=== PATIENT | female | born 1950 | race American Indian/Alaskan Native ===

== ENCOUNTER 2018-03-24 06:12 | Day surgery (SDC) | payer MEDICARE, OTHER ==
[2018-03-24] MEDS ORDERED: ECOTRIN PO ONE (06:35)
[2018-03-24] MEDS ORDERED: NACL 0.9% 500 ML 500 ML IV SCH (07:00)
[2018-03-24 07:24] LABS: Basophils % (Auto) 0.3 % (0.0-1.8); Hematocrit 37.2 % (30.3-42.9); Hemoglobin 12.2 gm/dl (10.1-14.3); Lymphocytes # (Auto) 1.7 K/mm3 (1.2-5.4); Lymphocytes % (Auto) 11.2 % (13.4-35.0); Mean Corpuscular HGB Conc 33 % (30-34); Mean Corpuscular Volume 94 fl (79-97); Monocytes # (Auto) 0.4 K/mm3 (0.0-0.8); Monocytes % (Auto) 2.7 % (0.0-7.3); Platelet Count 327 K/mm3 (140-440); Red Blood Count 3.96 M/mm3 (3.65-5.03)
[2018-03-24 07:32] LABS: INR 1.03 (0.87-1.13); Partial Thromboplastin Time 28.6 Sec. (24.2-36.6)
[2018-03-24 07:42] LABS: BUN/Creatinine Ratio 16; Blood Urea Nitrogen 13 mg/dL (7-17); Calcium 9.9 mg/dL (8.4-10.2); Hemolysis Index 9
[2018-03-24] MEDS ORDERED: HEPARIN 10,000 UNITS/10 ML ONE (08:25)
[2018-03-24] MEDS ORDERED: HEPARIN/NS 5000 UNIT/500ML(CATH LAB) 1,000 ML IR ONE (08:25)
[2018-03-24] MEDS ORDERED: CALAN ONE (08:26)
[2018-03-24] MEDS ORDERED: XYLOCAINE 2% INFILTRATI ONE (08:26)
[2018-03-24] MEDS ORDERED: TYLENOL PO NR (08:29)
[2018-03-24] MEDS ORDERED: TYLENOL ONE (08:30)
[2018-03-24] MEDS: SUBLIMAZE ONE ×2 (09:03→09:06)
[2018-03-24] MEDS: VERSED ONE ×2 (09:03→09:06)
--- NOTE | 2018-03-24 09:51 | Cardiac Catherization Report ---
CARDIAC CATHETERIZATION REPORT INDICATION FOR PROCEDURE: The patient is a 67-year-old -[place] female with history of hypertension, diabetes, hyperlipidemia with shortness of breath on exertion. She has equivocal myocardial perfusion study and she is scheduled for cardiac catheterization for definitive diagnosis and treatment. The patient is aware of the procedure, potential complications and alternatives of therapy available. The patient had echocardiogram performed on 07/02/2017 which showed ejection fraction of 55-60%. Right ventricular function is moderately reduced. The patient has IV Lexiscan nuclear imaging performed on 01/27/2018, which showed perfusion scans are within normal limits. No stress-induced arrhythmia noted. The patient had history of cardiac catheterization performed on 05/28/1995 at which time she was noted to have mild wall irregularities. The patient was brought to the catheterization laboratory. The patient is allergic to LATEX and also allergic to IODINE. She is taking prophylactic prednisone, Benadryl and Tagamet prior to her procedure. Latex free gloves were used. The patient was evaluated for moderate sedation, was found to be appropriate for moderate sedation. The patient was given IV Versed and fentanyl. Subsequently, sterile drapes were applied. Right wrist area and forearm thoroughly cleansed with Betadine solution. Local anesthesia was given using 2% Xylocaine. Right radial artery puncture was made using 21-gauge arterial puncture needle. A 5-Tunisian slender sheath was introduced. A 5-Tunisian multipurpose catheter was used to obtain the angiograms of the left ventricle done in CARPENTER projection using hand injection. Subsequently, angiograms of the left coronary artery and right coronary artery were obtained using the same catheter. At the end of the procedure, catheter and sheath were removed. Good hemostasis was achieved. Following findings were noted: HEMODYNAMICS: Opening aortic pressure 168/76. Left ventricular pressure 172/28, no gradient across the aortic valve. Estimated ejection fraction 55%. Left ventriculogram done in CARPENTER projection showed normal size left ventricle with normal contractility. End-diastolic and systolic volumes are normal. Mitral regurgitation could not be evaluated because of limited amount of dye injected. Left coronary system arises normally from left coronary cusp. There is [id number] diffuse calcification noted throughout the left main, proximal and mid LAD areas. Left main without significant disease. Proximal LAD showed 30% short focal lesion. Mid and distal LAD without significant disease. Diagonal branches showed only mild irregularities. Circumflex artery nondominant vessel showed mild smooth irregularities. Right coronary artery very large dominant vessel shows focal 40% eccentric lesion in the proximal part. Otherwise, rest of the right coronary artery shows only mild irregularities. COLLATERALS: None. FINAL IMPRESSION: Normal sized left ventricle with normal contractility. Diffuse calcifications noted in the left coronary system area. There is mild to moderate disease with 30% proximal LAD and 40% proximal RCA lesion. These lesions were felt to be nonobstructive. At this time, considering no significant ischemia noted on the nuclear images along with patient's symptoms being nonspecific. The patient will be continued on risk factor modification and medical therapy. The patient tolerated the procedure well. The patient was sedated starting at 9:03 a.m. and ended at 9:15 a.m. The patient was monitored throughout the procedure with hemodynamic, EKG, and pulse oximetry. No untoward complications noted. At the end of the procedure, the patient was able to communicate well, moving all the extremities and breathing normally. The patient was transferred to the room in stable condition. Findings were explained to the patient and her . No untoward complications noted. JOB# [id number] JEFFRY/SUNNY
--- NOTE | 2018-03-24 10:45 | Short Stay Summary ---
Short Stay Documentation Date of service: 03/24/18 - History H&P: obtained from office - Allergies and Medications Current Medications: Allergies Latex, Natural Rubber Allergy (Severe, Verified 03/24/18 08:11) Swelling swelling around mouth and face iodine Adverse Reaction (Unverified 03/24/18 08:11) Rash Hives shellfish derived Adverse Reaction (Verified 03/24/18 08:11) Rash Hives Home Medications Medication Instructions Recorded Confirmed Last Taken Type Amitriptyline [Elavil] 75 mg PO QHS 03/24/18 03/24/18 03/23/18 History Aspirin [Lo-Dose Aspirin EC] 81 mg PO DAILY 03/24/18 03/24/18 03/24/18 06:50 History Ergocalciferol [Vitamin D2] 1 cap PO QWEEK 03/24/18 03/24/18 03/22/18 History Latanoprost 0.005% 1 drop OU QHS 03/24/18 03/24/18 03/23/18 History Lisinopril/Hydrochlorothiazide 1 tab PO QDAY 03/24/18 03/24/18 03/24/18 06:50 History [Zestoretic 20-12.5 mg] Metformin HCl [Glucophage] 500 mg PO QAM 03/24/18 03/24/18 03/23/18 History Nebivolol HCl [Bystolic] 5 mg PO DAILY 03/24/18 03/24/18 03/24/18 06:50 History Omeprazole 40 mg PO QHS 03/24/18 03/24/18 03/23/18 History Active Medications Sodium Chloride (Nacl 0.9% 500 Ml) 500 mls @ 50 mls/hr IV DIRECT LINO Stop: 03/24/18 16:59 Last Admin: 03/24/18 08:01 Dose: 50 mls/hr Documented by: - Brief post op/procedure progress note Date of procedure: 03/24/18 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 Post-op diagnosis: other (CAD) Procedure: [facility] - see dictated cath report Anesthesia: local Estimated blood loss: none Condition: stable - Disposition Condition at discharge: Good Disposition: [id number] TO HOME OR SELFCARE - Discharge Diagnoses (1) CAD (coronary artery disease) Status: Chronic (2) HTN (hypertension) Status: Chronic (3) Diabetes Status: Chronic (4) Hyperlipidemia Status: Chronic Short Stay Discharge Plan Activity: advance as tolerated Diet: low fat, low cholesterol, low salt, diabetic Wound: open to air, keep clean and dry, per your surgeon's advice Follow up with: PRIMARY CARE, [Primary Care Provider] - 7 Days
[2018-03-24 13:20] VITALS: BP 145/83
== END 2018-03-24 12:50 | disposition home or self-care (01) ==
LOC: CATHLABREC 06:12
PROVIDERS: ATTEND Internal Medicine
DX: I25.10 Atherosclerotic heart disease of native coronary artery without angina pectoris (principal); I10 Essential (primary) hypertension; E78.5 Hyperlipidemia, unspecified; E11.39 Type 2 diabetes mellitus with other diabetic ophthalmic complication; H42 Glaucoma in diseases classified elsewhere; G43.909 Migraine, unspecified, not intractable, without status migrainosus; E78.00 Pure hypercholesterolemia, unspecified; G47.30 Sleep apnea, unspecified; K21.9 Gastro-esophageal reflux disease without esophagitis; M19.90 Unspecified osteoarthritis, unspecified site; F41.9 Anxiety disorder, unspecified; Z91.041 Radiographic dye allergy status; Z79.899 Other long term (current) drug therapy; Z91.040 Latex allergy status; Z91.013 Allergy to seafood; Z87.891 Personal history of nicotine dependence; Z79.84 Long term (current) use of oral hypoglycemic drugs; Z79.82 Long term (current) use of aspirin; Z98.51 Tubal ligation status; Z90.710 Acquired absence of both cervix and uterus; Z87.440 Personal history of urinary (tract) infections; Z98.890 Other specified postprocedural states; Z80.3 Family history of malignant neoplasm of breast; Z80.0 Family history of malignant neoplasm of digestive organs; Z80.42 Family history of malignant neoplasm of prostate; Z86.2 Personal history of diseases of the blood and blood-forming organs and certain disorders involving the immune mechanism
CPT/HCPCS: 36415; 80048; 85025; 85610; 85730; 93005; 93010; 93458; 99156; C1894; J1644; J2250; J3010; J7040; Q9967

== ENCOUNTER 2018-03-30 17:35 | Inpatient (IN) | payer MEDICARE, OTHER ==
[2018-03-30] MEDS ORDERED: TYLENOL ONE (18:14)
[2018-03-30] MEDS ORDERED: TYLENOL PO ONE (18:14)
--- NOTE | 2018-03-30 22:41 | XRay Report ---
FINAL REPORT PROCEDURE: XR CHEST ROUTINE 2V TECHNIQUE: PA and lateral chest radiographs were obtained. CPT 11768 HISTORY: sob,cough,fever COMPARISON: No prior studies are available for comparison. FINDINGS: . Heart: Normal. Mediastinum/Vessels: Normal. Lungs/Pleural space: Lungs are hyperinflated. There are no confluent infiltrates or mass lesions. Ple ural spaces are clear. Bony thorax: No acute osseous abnormality. Other: IMPRESSION: COPD No acute pulmonary process.
[2018-03-30] MEDS ORDERED: PROVENTIL IH ONE (23:11)
[2018-03-30] MEDS ORDERED: TESSALON PERLES PO ONE (23:11)
[2018-03-30] MEDS ORDERED: TORADOL IV ONE (23:11)
[2018-03-30] MEDS ORDERED: SOLU-Medrol IV ONE (23:11)
[2018-03-30] MEDS ORDERED: PEPCID IV ONE (23:12)
[2018-03-30] MEDS ORDERED: ZITHROMAX PO ONE (23:13)
[2018-03-30] MEDS ORDERED: ATROVENT IH ONE (23:13)
[2018-03-30 23:16] LABS: Hematocrit 41.9 % (30.3-42.9); Hemoglobin 13.9 gm/dl (10.1-14.3); Mean Corpuscular HGB Conc 33 % (30-34); Mean Corpuscular Volume 93 fl (79-97); Platelet Count 278 K/mm3 (140-440); Red Blood Count 4.52 M/mm3 (3.65-5.03); Red Cell Distribution Width 14.5 % (13.2-15.2)
--- NOTE | 2018-03-30 23:20 | Emergency Department Report ---
ED Female HPI - General Chief complaint: Vaginal Bleeding Stated complaint: VAGINAL BLEEDING POST HYSTERECTOMY Time Seen by Provider: 03/30/18 22:58 Source: patient Mode of arrival: Ambulatory Limitations: No Limitations - History of Present Illness Initial comments: 67 year old female has medical history of arthritis, asthma, diabetes, GERD, migraines, hypertension, elevated cholesterol, and a previous hysterectomy in the presents to the hospital with complaints of vaginal bleeding 3 days and cough 1 week. Patient states that she has been using on average 2-3 pads per day for the last days of having suprapubic abdominal pain and lower back pain. She also is having frequent coughing during examination. Patient complaining of cough times mildly because of a green sputum and intermittent breath with wheezing. Patient had a couple episodes of nausea and vomiting since onset of cold symptoms however none today. Patient did not receive a flu shot this season. - Related Data Home Medications Medication Instructions Recorded Confirmed Last Taken Amitriptyline [Elavil] 75 mg PO QHS 03/24/18 03/24/18 03/23/18 Aspirin [Lo-Dose Aspirin EC] 81 mg PO DAILY 03/24/18 03/24/18 03/24/18 06:50 Ergocalciferol [Vitamin D2] 1 cap PO QWEEK 03/24/18 03/24/18 03/22/18 Latanoprost 0.005% 1 drop OU QHS 03/24/18 03/24/18 03/23/18 Lisinopril/Hydrochlorothiazide 1 tab PO QDAY 03/24/18 03/24/18 03/24/18 06:50 [Zestoretic 20-12.5 mg] Metformin HCl [Glucophage] 500 mg PO QAM 03/24/18 03/24/18 03/23/18 Nebivolol HCl [Bystolic] 5 mg PO DAILY 03/24/18 03/24/18 03/24/18 06:50 Omeprazole 40 mg PO QHS 03/24/18 03/24/18 03/23/18 Allergies Allergy/AdvReac Type Severity Reaction Status Date / Time Latex, Natural Rubber Allergy Severe Swelling Verified 03/24/18 08:11 iodine AdvReac Rash Unverified 03/24/18 08:11 shellfish derived AdvReac Rash Verified 03/24/18 08:11 ED Review of Systems ROS: Stated complaint: VAGINAL BLEEDING POST HYSTERECTOMY Other details as noted in HPI Comment: All other systems reviewed and negative ED Past Medical Hx - Past Medical History Hx Hypertension: Yes Hx Heart Attack/AMI: No Hx Diabetes: Yes Hx GERD: Yes Hx Sickle Cell Disease: No Hx Arthritis: Yes Hx Headaches / Migraines: Yes (migraines) Hx Seizures: No Hx Asthma: Yes Hx HIV: No Additional medical history: ELEVATED CHOLESTEROL - Surgical History Additional Surgical History: HYSTERECTOMY 70'S - Social History Smoking Status: Former Smoker Substance Use Type: Alcohol - Medications Home Medications: Home Medications Medication Instructions Recorded Confirmed Last Taken Type Amitriptyline [Elavil] 75 mg PO QHS 03/24/18 03/24/18 03/23/18 History Aspirin [Lo-Dose Aspirin EC] 81 mg PO DAILY 03/24/18 03/24/18 03/24/18 06:50 History Ergocalciferol [Vitamin D2] 1 cap PO QWEEK 03/24/18 03/24/18 03/22/18 History Latanoprost 0.005% 1 drop OU QHS 03/24/18 03/24/18 03/23/18 History Lisinopril/Hydrochlorothiazide 1 tab PO QDAY 03/24/18 03/24/18 03/24/18 06:50 History [Zestoretic 20-12.5 mg] Metformin HCl [Glucophage] 500 mg PO QAM 03/24/18 03/24/18 03/23/18 History Nebivolol HCl [Bystolic] 5 mg PO DAILY 03/24/18 03/24/18 03/24/18 06:50 History Omeprazole 40 mg PO QHS 03/24/18 03/24/18 03/23/18 History ED Physical Exam - General Limitations: No Limitations - Other Other exam information: General: No limitations, patient is alert in no acute distress Head exam: Atraumatic, normocephalic Eyes exam: Normal appearance, pupils equal reactive to light, extraocular movements intact ENT: Moist mucous membrane, normal oropharynx Neck exam: Normal inspection, full range of motion, no meningismus nontender Respiratory exam: Frequent dry cough during examination. Mild Bilateral wheezings with coarse breath sounds Cardiovascular: Normal rate and rhythm, normal heart sounds Abdomen: Soft, nondistended, suprapubic tenderness, with normal bowel sounds, no rebound, or guarding Extremity: Full range of motion normal inspection no deformity Back: Normal Inspection, full range of motion, no tenderness Neurologic: Alert, oriented x3, cranial nerves intact, no motor or sensory deficit Psychiatric: normal affect, normal mood Skin: Warm, dry, intact ED Course Vital Signs 03/30/18 03/30/18 03/30/18 18:00 18:15 21:20 Temperature 101.6 F H 98.8 F Pulse Rate 84 78 Respiratory 20 18 18 Rate Blood Pressure 117/61 102/49 Blood Pressure [Right] O2 Sat by Pulse 94 97 Oximetry 03/31/18 03/31/18 03/31/18 01:04 01:37 01:48 Temperature Pulse Rate 73 81 Respiratory 19 14 19 Rate Blood Pressure Blood Pressure 120/46 99/34 [Right] O2 Sat by Pulse 98 97 Oximetry - Reevaluation(s) Reevaluation #1: 03/31/18 01:57 After initial nebulized treatment patient continues to have wheezing but no respiratory distress. ED Medical Decision Making - Lab Data Result diagrams: 03/30/18 22:51 03/30/18 22:51 Lab Results 03/30/18 03/30/18 03/30/18 Range/Units 22:51 22:51 22:51 WBC 6.6 (4.5-11.0) K/mm3 RBC 4.52 (3.65-5.03) M/mm3 Hgb 13.9 (10.1-14.3) gm/dl Hct 41.9 (30.3-42.9) % MCV 93 (79-97) fl MCH 31 (28-32) pg MCHC 33 (30-34) % RDW 14.5 (13.2-15.2) % Plt Count 278 (140-440) K/mm3 PT 13.2 (12.2-14.9) Sec. INR 0.96 (0.87-1.13) APTT 23.2 L (24.2-36.6) Sec. Sodium 133 L (137-145) mmol/L Potassium 3.7 (3.6-5.0) mmol/L Chloride 91.4 L (98-107) mmol/L Carbon Dioxide 23 (22-30) mmol/L Anion Gap 22 mmol/L BUN 33 H (7-17) mg/dL Creatinine 2.6 H (0.7-1.2) mg/dL Estimated GFR 22 ml/min BUN/Creatinine Ratio 13 % Glucose 135 H (65-100) mg/dL Calcium 8.9 (8.4-10.2) mg/dL - EKG Data -: EKG Interpreted by Me EKG shows normal: sinus rhythm, axis (qrs-24), QRS complexes (qrsd 91), ST-T waves (no stemi) Rate: normal (82) - Radiology Data Radiology results: report reviewed Pelvic/transvaginal ultrasound: She has had a hysterectomy and bilateral oophorectomy. No evidence of pelvic mass. cxr: copd no acute dz - Medical Decision Making Patient has acute renal insufficiency with dramatic change her creatinine compared to previous value on March 24. Mild hyponatremia noted. Normal saline initiated. Patient treated meds for acute wheezing/bronchitis and did receive a oral azithromycin in the ED. Ultrasound has not identified the ccause of post hysterectomy vaginal bleeding the patient does have a stable H&H. She'll be admitted to the hospital for further treatment - Differential Diagnosis URI, pneumonia, cancer, coagulopathy, bronchitis Critical Care Time: No Critical care attestation.: If time is entered above; I have spent that time in minutes in the direct care of this critically ill patient, excluding procedure time. ED Disposition Clinical Impression: Acute bronchitis, Postmenopausal bleeding, Acute renal insufficiency, Hx of total hysterectomy Disposition: OP ADMIT IP TO THIS HOSP Is pt being admited?: Yes Condition: Stable Time of Disposition: 02:03 (Dr Davis/hosp)
[2018-03-30 23:23] LABS: INR 0.96 (0.87-1.13); Partial Thromboplastin Time 23.2 Sec. (24.2-36.6)
[2018-03-31 00:50] LABS: Calcium 8.9 mg/dL (8.4-10.2)
--- NOTE | 2018-03-31 01:16 | Ultrasound Report ---
FINAL REPORT PROCEDURE: US TRANSVAGINAL TECHNIQUE: Real-time transabdominal sonography in multiple planes of the pelvis was performed. The p elvic structures, especially the ovaries were not optimally visualized. Transvaginal sonography was t hen performed to better evaluate the structures and/or abnormalities described below with image docum entation. CPT 91567 and 28770 HISTORY: vag bleeding s/p hysterectomy COMPARISON: No prior studies are available for comparison. FINDINGS: The uterus and both ovaries have been removed. Ultrasound imaging of the pelvis reveals no evidence o f a mass. No fluid collections are identified. The urinary bladder is not remarkable. IMPRESSION: Patient has had a hysterectomy and bilateral oophorectomy. There is no evidence of pelvic mass.
--- NOTE | 2018-03-31 01:17 | Ultrasound Report ---
FINAL REPORT PROCEDURE: US transvaginal and transabdominal pelvic TECHNIQUE: Real-time transabdominal sonography in multiple planes of the pelvis was performed. The p elvic structures, especially the ovaries were not optimally visualized. Transvaginal sonography was t hen performed to better evaluate the structures and/or abnormalities described below with image docum entation. CPT 50694 and 41115 HISTORY: vag bleeding s/p hysterectomy COMPARISON: No prior studies are available for comparison. FINDINGS: The uterus and both ovaries have been removed. Ultrasound imaging of the pelvis reveals no evidence o f a mass. No fluid collections are identified. The urinary bladder is not remarkable. IMPRESSION: Patient has had a hysterectomy and bilateral oophorectomy. There is no evidence of pelvic mass.
[2018-03-31] MEDS ORDERED: PROVENTIL IH ONE (01:54)
[2018-03-31] MEDS ORDERED: NACL 0.9% 1000 ML 1,000 ML IV SCH (02:00)
--- NOTE | 2018-03-31 03:28 | History and Physical Report ---
History of Present Illness Date of examination: 03/31/18 History of present illness: 67-year-old woman with a history of diabetes, hypertension, GERD, hyperlipidemia, coronary artery disease comes emergency room with complaints of cough productive of green phlegm shortness of breath 3 days. A daughter at bedside states the patient has been having vaginal bleeding since Friday, uses 3-4 pads a day. Status post cardiac cath on March 24. Also complaining of lower back pain, no bowel or bladder incontinent Review of systems Constitutional: no weight loss, chills, fever Ears, eyes, nose, mouth and throat: no nasal congestion, no nasal discharge, no sinus pressure, no vision change, no red eye. Neck: No neck pain or rigidity. Cardiovascular: no palpitations, chest pain Respiratory: + cough, shortness of breath Gastrointestinal: no hematochezia, abdominal pain Genitourinary : no frequency , no hematuria Musculoskeletal: no joint swelling or muscle ache Integumentary: no rash, no pruritis Neurological: no parathesias, no focal weakness Endocrine: no cold or heat intolerance, no polyuria or polydipsia Hematologic/Lymphatic: no easy bruising, no easy bleeding, no gland swelling Allergic/Immunologic: no urticaria, no angioedema. PAST MEDICAL HISTORY:diabetes, hypertension, GERD, hyperlipidemia, coronary artery disease PAST SURGICAL HISTORY: Hysterectomy SOCIAL HISTORY: Denies alcohol, drugs, quit tobacco recently FAMILY HISTORY: Hypertension Medications and Allergies Allergies Allergy/AdvReac Type Severity Reaction Status Date / Time Latex, Natural Rubber Allergy Severe Swelling Verified 03/24/18 08:11 iodine AdvReac Rash Verified 03/31/18 05:14 shellfish derived AdvReac Rash Verified 03/24/18 08:11 Home Medications Medication Instructions Recorded Confirmed Last Taken Type Amitriptyline [Elavil] 75 mg PO QHS 03/24/18 03/31/18 03/23/18 History Aspirin [Lo-Dose Aspirin EC] 81 mg PO DAILY 03/24/18 03/31/18 03/24/18 06:50 History Ergocalciferol [Vitamin D2] 1 cap PO QWEEK 03/24/18 03/31/18 03/22/18 History Latanoprost 0.005% 1 drop OU QHS 03/24/18 03/31/18 03/23/18 History Lisinopril/Hydrochlorothiazide 1 tab PO QDAY 03/24/18 03/31/18 03/24/18 06:50 History [Zestoretic 20-12.5 mg] Metformin HCl [Glucophage] 500 mg PO QAM 03/24/18 03/31/18 03/23/18 History Nebivolol HCl [Bystolic] 5 mg PO DAILY 03/24/18 03/31/18 03/24/18 06:50 History Omeprazole 40 mg PO QHS 03/24/18 03/31/18 03/23/18 History Active Meds: Active Medications Sodium Chloride (Nacl 0.9% 1000 Ml) 1,000 mls @ 150 mls/hr IV DIRECT LINO Exam - Physical Exam Narrative exam: General Apperance: The patient lying in bed, breathing comfortable HEENT: Normocephalic, atraumatic. Pupils equally round and reactive to light, EOMI, no sclericterus or JVD or thyromegaly or nodule. , no carotid bruit, mucous membranes moist, no exudate or erythema Heart: S1-S2, regular is rhythm Lungs: Rhonchi and wheezing bilaterally, breathing comfortable Abdomen: Positive bowel sounds, soft, nontender, nondistended, no organomegaly Extremities: No edema cyanosis clubbing Skin: no rash, nodule, warm and dry Neuro: cranial nerves 2-12 intact, speech is fluent, motor/sensory intact - Constitutional Vitals: Temp Pulse Resp BP Pulse Ox 98.8 F 81 19 99/34 97 03/30/18 21:20 03/31/18 01:37 03/31/18 01:48 03/31/18 01:37 03/31/18 01:37 Results - Labs CBC & Chem 7: 03/30/18 22:51 03/30/18 22:51 Labs: Abnormal lab results 03/30/18 03/30/18 Range/Units 22:51 22:51 APTT 23.2 L (24.2-36.6) Sec. Sodium 133 L (137-145) mmol/L Chloride 91.4 L (98-107) mmol/L BUN 33 H (7-17) mg/dL Creatinine 2.6 H (0.7-1.2) mg/dL Glucose 135 H (65-100) mg/dL - Imaging and Cardiology EKG: image reviewed Chest x-ray: report reviewed Assessment and Plan Pelvic and transvaginal ultrasound reviewed Assessment Acute renal failure secondary secondary to contrast Lower back pain Acute bronchitis Hypertension Diabetes GERD Hyperlipidemia Hypertension Plan Admit to medicine Start IV fluid, monitor kidney function Start Levaquin, steroids, check CT LS spine Check fingersticks and initiate insulin signs: DVT prophylaxis
--- NOTE | 2018-03-31 04:24 | Cat Scan Report ---
FINAL REPORT PROCEDURE: CT LUMBAR SPINE WO CON TECHNIQUE: Computerized axial tomography of the lumbar spine was performed from T12 to the sacrum wi thout contrast material. HISTORY: back pain COMPARISON: No prior studies are available for comparison. FINDINGS: L1-2: Disc is normal. No spinal canal stenosis. L2-3: Mild circumferential bulging disc. There is slight spur formation off of the vertebral body. Mo derate hypertrophy of the facets is noted. Mild bilateral lateral canal stenosis is noted. The AP spi nal canal is maintained. L3-4: There is mild circumferential bulging disc. Slight spur formation off of the vertebral body is identified. There is moderate hypertrophy of the facets. The AP spinal canal is maintained. Mild bila teral lateral canal stenosis.. L4-5: There is a circumferential bulging disc present. There is mild spur formation off the vertebral bodies. There is moderate hypertrophy of the facets. The AP spinal canal is maintained. Mild bilater al lateral canal stenosis.. L5-S1: There is loss of disc space height at this level. Significant circumferential bulging disc is present. There is moderate spur formation off the vertebral bodies at this level. There is moderate h ypertrophy of the facets. Mild central canal stenosis is identified at this level.. Other: No acute fractures identified. Lumbar spondylosis and degenerative disc changes are identified as described. There is significant loss of disc space height at the L5-S1 level. There is some endpl ate remodeling at this level.. IMPRESSION: There is significant degenerative disc change at the L5-S1 level. This includes some endplate remodel ing of the vertebral bodies as well as mild central canal stenosis at the L5-S1 level. Mild lumbar spondylosis and degenerative disc change in the remainder of the lumbar spine is noted. T his is discussed above in detail.
[2018-03-31] MEDS ORDERED: TYLENOL PO PRN (04:28)
[2018-03-31] MEDS ORDERED: SODIUM CHLORIDE FLUSH SYRINGE 10 ML IV PRN (04:28)
[2018-03-31] MEDS ORDERED: ZOFRAN IV PRN (04:28)
[2018-03-31] MEDS ORDERED: D50W (25GM) Syringe IV PRN (05:32)
[2018-03-31] MEDS: NACL 0.9% 1000 ML 1,000 ML IV SCH ×2 (06:57→22:10)
[2018-03-31] MEDS: SOLU-Medrol IV SCH ×3 (07:01→18:22)
[2018-03-31 07:15] LABS: Basophils % (Auto) 0.2 % (0.0-1.8); Hematocrit 38.3 % (30.3-42.9); Hemoglobin 12.7 gm/dl (10.1-14.3); Lymphocytes # (Auto) 0.6 K/mm3 (1.2-5.4); Lymphocytes % (Auto) 9.3 % (13.4-35.0); Mean Corpuscular HGB Conc 33 % (30-34); Mean Corpuscular Volume 92 fl (79-97); Monocytes # (Auto) 0.3 K/mm3 (0.0-0.8); Monocytes % (Auto) 3.9 % (0.0-7.3); Platelet Count 218 K/mm3 (140-440); Red Blood Count 4.15 M/mm3 (3.65-5.03); Red Cell Distribution Width 14.4 % (13.2-15.2)
[2018-03-31] MEDS: HumaLOG SUB-Q SCH ×4 (07:30→21:49)
[2018-03-31 07:33] LABS: Calcium 8.8 mg/dL (8.4-10.2)
[2018-03-31] MEDS ORDERED: NON-FORMULARY (Lisinopril/Hydrochlorothiazide [Zestoretic 20-12.5 Mg] 1 TAB) PO SCH (10:00)
[2018-03-31] MEDS ORDERED: LEVAQUIN 500MG/100ML 500 MG/100 ML BAG IV SCH (10:00)
[2018-03-31] MEDS ORDERED: NEBIVOLOL HCL 5 MG PO SCH (10:00)
[2018-03-31] MEDS ORDERED: GLUCOPHAGE PO SCH (11:00)
[2018-03-31] MEDS ORDERED: ZESTRIL PO SCH (11:00)
[2018-03-31] MEDS: TOPROL XL PO SCH (12:53)
[2018-03-31] MEDS: HALFPRIN EC PO SCH (12:54)
[2018-03-31] MEDS: PROTONIX PO SCH (12:54)
[2018-03-31] MEDS: HCTZ PO SCH (12:54)
--- NOTE | 2018-03-31 13:59 | Progress Note ---
Assessment and Plan Assessment and plan: Patient is a 67 yo woman with a history of DM type 2, hypertension, GERD, dyslipidemia, CAD and tobacco dependency who [facility] with sob and productive cough and presumed heavy vaginal bleeding. 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 Follow-up on current diagnosis of cough and vaginal bleeding. Overnight uneventful. Patient denies any chest pain, shortness breath, nausea/vomiting or severe headaches. Imaging, nursing note, chart, labs and old chart reviewed. Discussed with patient. She wants to go home because she is feeling better, but doesn't know if vagina is bleeding or rectum. She has constipation. H/H has been normal Hospitalist Physical - Physical exam Narrative exam: Gen: WDWN, NAD, Awake, Alert, Orientated HEENT: NCAT, EOMI, PERRL, OP Clear Neck: supple, no adenopathy, no thyromegaly, no JVD CVS/Heart: RRR, normal S1S2, pulses present bilaterally Chest/Lungs: diminished bs bilateral with exp wheezing, Symmetrical chest expansion, good air entry bilaterally GI/Abdomen: soft, NTND, good bowel sounds, no guarding or rebound /Bladder: no suprapubic tenderness, no CVA or paraspinal tenderness Extermity/Skin: no c/c/e, no obvious rash MSK: FROM x 4 Neuro: CN 2-12 grossly intact, no new focal deficits Psych: calm - Constitutional Vitals: Temp Pulse Resp BP Pulse Ox 97.7 F 66 18 109/50 97 03/31/18 12:31 03/31/18 12:31 03/31/18 12:31 03/31/18 12:31 03/31/18 12:31 Results - Labs CBC & Chem 7: 03/31/18 07:06 03/31/18 07:06 Labs: Laboratory Last Values WBC 6.7 K/mm3 (4.5-11.0) 03/31/18 07:06 RBC 4.15 M/mm3 (3.65-5.03) 03/31/18 07:06 Hgb 12.7 gm/dl (10.1-14.3) 03/31/18 07:06 Hct 38.3 % (30.3-42.9) 03/31/18 07:06 MCV 92 fl (79-97) 03/31/18 07:06 MCH 31 pg (28-32) 03/31/18 07:06 MCHC 33 % (30-34) 03/31/18 07:06 RDW 14.4 % (13.2-15.2) 03/31/18 07:06 Plt Count 218 K/mm3 (140-440) 03/31/18 07:06 Lymph % (Auto) 9.3 % (13.4-35.0) L 03/31/18 07:06 Mathews % (Auto) 3.9 % (0.0-7.3) 03/31/18 07:06 Eos % (Auto) 0.0 % (0.0-4.3) 03/31/18 07:06 Baso % (Auto) 0.2 % (0.0-1.8) 03/31/18 07:06 Lymph # 0.6 K/mm3 (1.2-5.4) L 03/31/18 07:06 Mathews # 0.3 K/mm3 (0.0-0.8) 03/31/18 07:06 Eos # 0.0 K/mm3 (0.0-0.4) 03/31/18 07:06 Baso # 0.0 K/mm3 (0.0-0.1) 03/31/18 07:06 Seg Neutrophils % 86.6 % (40.0-70.0) H 03/31/18 07:06 Seg Neutrophils # 5.8 K/mm3 (1.8-7.7) 03/31/18 07:06 PT 13.2 Sec. (12.2-14.9) 03/30/18 22:51 INR 0.96 (0.87-1.13) 03/30/18 22:51 APTT 23.2 Sec. (24.2-36.6) L 03/30/18 22:51 Sodium 130 mmol/L (137-145) L 03/31/18 07:06 Potassium 3.8 mmol/L (3.6-5.0) 03/31/18 07:06 Chloride 88.4 mmol/L (98-107) L 03/31/18 07:06 Carbon Dioxide 22 mmol/L (22-30) 03/31/18 07:06 Anion Gap 23 mmol/L 03/31/18 07:06 BUN 36 mg/dL (7-17) H 03/31/18 07:06 Creatinine 2.0 mg/dL (0.7-1.2) H 03/31/18 07:06 Estimated GFR 30 ml/min 03/31/18 07:06 BUN/Creatinine Ratio 18 % 03/31/18 07:06 Glucose 312 mg/dL (65-100) H 03/31/18 07:06 POC Glucose 392 (70-105) H 03/31/18 12:32 Calcium 8.8 mg/dL (8.4-10.2) 03/31/18 07:06
--- NOTE | 2018-03-31 15:30 | Consultation ---
History of Present Illness - Reason for Consult Consult date: 03/31/18 acute renal failure, metabolic acidosis Requesting physician: CORINNE MORAN - History of Present Illness 67-year-old woman with a history of diabetes, hypertension, GERD, hyperlipidemia, coronary artery disease comes emergency room with complaints of cough productive of green phlegm shortness of breath 3 days. A daughter at bedside states the patient has been having vaginal bleeding since Friday, uses 3-4 pads a day. Status post cardiac cath on March 24. Also complaining of lower back pain, no bowel or bladder incontinent Review of systems Constitutional: no weight loss, chills, fever Ears, eyes, nose, mouth and throat: no nasal congestion, no nasal discharge, no sinus pressure, no vision change, no red eye. Neck: No neck pain or rigidity. Cardiovascular: no palpitations, chest pain Respiratory: + cough, shortness of breath Gastrointestinal: no hematochezia, abdominal pain Genitourinary : no frequency , no hematuria Musculoskeletal: no joint swelling or muscle ache Integumentary: no rash, no pruritis Neurological: no parathesias, no focal weakness Endocrine: no cold or heat intolerance, no polyuria or polydipsia Hematologic/Lymphatic: no easy bruising, no easy bleeding, no gland swelling Allergic/Immunologic: no urticaria, no angioedema. PAST MEDICAL HISTORY:diabetes, hypertension, GERD, hyperlipidemia, coronary artery disease PAST SURGICAL HISTORY: Hysterectomy SOCIAL HISTORY: Denies alcohol, drugs, quit tobacco recently FAMILY HISTORY: Hypertension Medications and Allergies Allergies Allergy/AdvReac Type Severity Reaction Status Date / Time Latex, Natural Rubber Allergy Severe Swelling Verified 03/24/18 08:11 iodine AdvReac Rash Verified 03/31/18 05:14 shellfish derived AdvReac Rash Verified 03/24/18 08:11 Home Medications Medication Instructions Recorded Confirmed Last Taken Type Amitriptyline [Elavil] 75 mg PO QHS 03/24/18 03/31/18 03/23/18 History Aspirin [Lo-Dose Aspirin EC] 81 mg PO DAILY 03/24/18 03/31/18 03/24/18 06:50 History Ergocalciferol [Vitamin D2] 1 cap PO QWEEK 03/24/18 03/31/18 03/22/18 History Latanoprost 0.005% 1 drop OU QHS 03/24/18 03/31/18 03/23/18 History Lisinopril/Hydrochlorothiazide 1 tab PO QDAY 03/24/18 03/31/18 03/24/18 06:50 History [Zestoretic 20-12.5 mg] Metformin HCl [Glucophage] 500 mg PO QAM 03/24/18 03/31/18 03/23/18 History Nebivolol HCl [Bystolic] 5 mg PO DAILY 03/24/18 03/31/18 03/24/18 06:50 History Omeprazole 40 mg PO QHS 03/24/18 03/31/18 03/23/18 History Active Meds: Active Medications Acetaminophen (Tylenol) 650 mg PO Q4H PRN PRN Reason: Pain MILD(1-3)/Fever >100.5/ALLAN Amitriptyline HCl (Elavil) 75 mg PO QHS COUNT INCLUDES THE [facility] Aspirin (Halfprin Ec) 81 mg PO DAILY COUNT INCLUDES THE [facility] Last Admin: 03/31/18 12:54 Dose: 81 mg Documented by: Dextrose (D50w (25gm) Syringe) 50 ml IV PRN PRN PRN Reason: Hypoglycemia Hydrochlorothiazide (Hctz) 12.5 mg PO QDAY COUNT INCLUDES THE [facility] Last Admin: 03/31/18 12:54 Dose: 12.5 mg Documented by: Sodium Chloride (Nacl 0.9% 1000 Ml) 1,000 mls @ 100 mls/hr IV DIRECT COUNT INCLUDES THE [facility] Last Admin: 03/31/18 06:57 Dose: 100 mls/hr Documented by: Levofloxacin/Dextrose (Levaquin 500mg/100ml) 500 mg in 100 mls @ 100 mls/hr IV Q48HR COUNT INCLUDES THE [facility]; Protocol Last Admin: 03/31/18 09:58 Dose: 100 mls/hr Documented by: Insulin Human Lispro (Humalog) 0 unit SUB-Q ACHS COUNT INCLUDES THE [facility]; Protocol Last Admin: 03/31/18 12:55 Dose: 10 unit Documented by: Latanoprost (Latanoprost 0.005%) 1 drops OU QHS COUNT INCLUDES THE [facility] Lisinopril (Zestril) 20 mg PO QDAY COUNT INCLUDES THE [facility] Last Admin: 03/31/18 12:53 Dose: 20 mg Documented by: Metformin HCl (Glucophage) 500 mg PO QAMDIAB COUNT INCLUDES THE [facility] Last Admin: 03/31/18 13:00 Dose: 500 mg Documented by: Methylprednisolone Sodium Succinate (Solu-Medrol) 125 mg IV Q6HR COUNT INCLUDES THE [facility] Last Admin: 03/31/18 12:54 Dose: 125 mg Documented by: Metoprolol Succinate (Toprol Xl) 50 mg PO QDAY COUNT INCLUDES THE [facility] Last Admin: 03/31/18 12:53 Dose: 50 mg Documented by: Ondansetron HCl (Zofran) 4 mg IV Q8H PRN PRN Reason: Nausea And Vomiting Pantoprazole Sodium (Protonix) 40 mg PO DAILY COUNT INCLUDES THE [facility] Last Admin: 03/31/18 12:54 Dose: 40 mg Documented by: Sodium Chloride (Sodium Chloride Flush Syringe 10 Ml) 10 ml IV BID COUNT INCLUDES THE [facility] Sodium Chloride (Sodium Chloride Flush Syringe 10 Ml) 10 ml IV PRN PRN PRN Reason: LINE FLUSH Exam - Vital Signs Vital signs: Vital Signs Temp Pulse Resp BP Pulse Ox 101.6 F H 84 20 117/61 94 03/30/18 18:00 03/30/18 18:00 03/30/18 18:00 03/30/18 18:00 03/30/18 18:00 - Physical Exam Narrative exam: General Apperance: The patient lying in bed, breathing comfortable HEENT: Normocephalic, atraumatic. Pupils equally round and reactive to light, EOMI, no sclericterus or JVD or thyromegaly or nodule. , no carotid bruit, mucous membranes moist, no exudate or erythema Heart: S1-S2, regular is rhythm Lungs: Rhonchi and wheezing bilaterally, breathing comfortable Abdomen: Positive bowel sounds, soft, nontender, nondistended, no organomegaly Extremities: No edema cyanosis clubbing Skin: no rash, nodule, warm and dry Neuro: cranial nerves 2-12 intact, speech is fluent, motor/sensory intact Results - Lab Results 03/31/18 07:06 03/31/18 07:06 Most recent lab results Calcium 8.8 mg/dL (8.4-10.2) 03/31/18 07:06 Assessment and Plan Impression: Acute renal failure secondary secondary to contrast Lower back pain Acute bronchitis Hypertension Diabetes GERD Hyperlipidemia Hypertension Plan Start IV fluid, monitor kidney function continue ivfs/abx strict i/is daily lytes cr is improving DVT prophylaxis
[2018-03-31] MEDS: SODIUM CHLORIDE FLUSH SYRINGE 10 ML IV SCH (18:23)
[2018-03-31] MEDS ORDERED: ELAVIL PO SCH (22:00)
[2018-03-31] MEDS ORDERED: NON-FORMULARY (Omeprazole [Omeprazole] 40 MG) PO SCH (22:00)
[2018-03-31] MEDS ORDERED: LATANOPROST 0.005% OU SCH (22:00)
[2018-03-31] MEDS ORDERED: AMITRIPTYLINE 75 MG PO SCH (22:00)
[2018-04-01] MEDS: SOLU-Medrol IV SCH ×2 (00:36→05:35)
[2018-04-01] MEDS: SODIUM CHLORIDE FLUSH SYRINGE 10 ML IV SCH (00:36)
[2018-04-01 07:12] LABS: Hematocrit 35.1 % (30.3-42.9); Mean Corpuscular HGB Conc 34 % (30-34); Mean Corpuscular Volume 91 fl (79-97); Platelet Count 246 K/mm3 (140-440); Red Blood Count 3.86 M/mm3 (3.65-5.03); Red Cell Distribution Width 14.3 % (13.2-15.2)
[2018-04-01 07:50] LABS: BUN/Creatinine Ratio TNR; Blood Urea Nitrogen TNR mg/dL (7-17); Calcium TNR mg/dL (8.4-10.2); Hemolysis Index TNR
[2018-04-01] MEDS: HALFPRIN EC PO SCH (10:05)
[2018-04-01] MEDS: TOPROL XL PO SCH (10:05)
[2018-04-01] MEDS: PROTONIX PO SCH (10:05)
[2018-04-01] MEDS: HCTZ PO SCH (10:05)
[2018-04-01] MEDS: HumaLOG SUB-Q SCH (10:09)
--- NOTE | 2018-04-01 11:15 | Gastroenterology Consultation ---
Addendum entered and electronically signed by JULI ROSENBERG MD 04/01/18 14:43: pt seen and examined, chart reviewed, consult below reviewed - pt presents w/ vaginal vs GI bleeding - denies active GI symptoms - labs stable vss p,e.: nad abd: soft - no signs active GI bleeding - h/h stable - colonoscopy as outpt - other rec as outlined below - will sign off, call if needed Original Note: History of Present Illness - Reason for Consult Consult date: 04/01/18 positive FOBT Requesting physician: MIKEL HENRY - History of Present Illness Patient is a 67 y/o female with PMH of DM, HTN, GERD, dyslipidemia, CAD (heart c ath 03/2018), and tobacco dependency who presented to [facility] with c/o SOB with productive cough, and presumed vaginal bleeding. She underwent a transvaginal u/s that was unremarkable and reported a scant amount of bright red blood yesterday after a BM with FOBT positive to which GI has been consulted. This morning patient was sitting up in bed eating breakfast w/o acute distress or GI complaints. No heatemesis or melena. Reports a scant amount of bright red blood after BM yesterday but no active signs of bleeding today. Denies fever, CP, SOB, wt loss, abd pain, N/V, or diarrhea. Has a hx of chronic constipation. No rectal pain or recent rectal trauma. Last colonoscopy was approximately 4 years ago in [place] that revealed polyps. Fhx of colon cancer with her sister (dx in her 80s). She is requesting to go home with further workup as an outpatient. Past History Past Medical History: other (as per HPI) Past Surgical History: hysterectomy Social history: other (former smoker). denies: alcohol abuse Family history: hypertension, other (colon cancer) Medications and Allergies Allergies Allergy/AdvReac Type Severity Reaction Status Date / Time Latex, Natural Rubber Allergy Severe Swelling Verified 03/24/18 08:11 iodine AdvReac Rash Verified 03/31/18 05:14 shellfish derived AdvReac Rash Verified 03/24/18 08:11 Home Medications Medication Instructions Recorded Confirmed Last Taken Type Amitriptyline [Elavil] 75 mg PO QHS 03/24/18 03/31/18 03/23/18 History Aspirin [Lo-Dose Aspirin EC] 81 mg PO DAILY 03/24/18 03/31/18 03/24/18 06:50 History Ergocalciferol [Vitamin D2] 1 cap PO QWEEK 03/24/18 03/31/18 03/22/18 History Latanoprost 0.005% 1 drop OU QHS 03/24/18 03/31/18 03/23/18 History Lisinopril/Hydrochlorothiazide 1 tab PO QDAY 03/24/18 03/31/18 03/24/18 06:50 History [Zestoretic 20-12.5 mg] Metformin HCl [Glucophage] 500 mg PO QAM 03/24/18 03/31/18 03/23/18 History Nebivolol HCl [Bystolic] 5 mg PO DAILY 03/24/18 03/31/18 03/24/18 06:50 History Omeprazole 40 mg PO QHS 03/24/18 03/31/18 03/23/18 History Active Meds: Active Medications Acetaminophen (Tylenol) 650 mg PO Q4H PRN PRN Reason: Pain MILD(1-3)/Fever >100.5/ALLAN Amitriptyline HCl (Elavil) 75 mg PO QHS [facility] Last Admin: 03/31/18 21:52 Dose: 75 mg Documented by: Aspirin (Halfprin Ec) 81 mg PO DAILY [facility] Last Admin: 04/01/18 10:05 Dose: 81 mg Documented by: Dextrose (D50w (25gm) Syringe) 50 ml IV PRN PRN PRN Reason: Hypoglycemia Hydrochlorothiazide (Hctz) 12.5 mg PO QDAY [facility] Last Admin: 04/01/18 10:05 Dose: 12.5 mg Documented by: Sodium Chloride (Nacl 0.9% 1000 Ml) 1,000 mls @ 100 mls/hr IV DIRECT [facility] Last Admin: 03/31/18 22:10 Dose: 100 mls/hr Documented by: Levofloxacin/Dextrose (Levaquin 500mg/100ml) 500 mg in 100 mls @ 100 mls/hr IV Q48HR [facility]; Protocol Last Admin: 03/31/18 09:58 Dose: 100 mls/hr Documented by: Insulin Human Lispro (Humalog) 0 unit SUB-Q ACHS [facility]; Protocol Last Admin: 04/01/18 10:09 Dose: 3 unit Documented by: Latanoprost (Latanoprost 0.005%) 1 drops OU QHS [facility] Last Admin: 03/31/18 21:53 Dose: 1 drops Documented by: Methylprednisolone Sodium Succinate (Solu-Medrol) 125 mg IV Q6HR [facility] Last Admin: 04/01/18 05:35 Dose: 125 mg Documented by: Metoprolol Succinate (Toprol Xl) 50 mg PO QDAY [facility] Last Admin: 04/01/18 10:05 Dose: 50 mg Documented by: Ondansetron HCl (Zofran) 4 mg IV Q8H PRN PRN Reason: Nausea And Vomiting Pantoprazole Sodium (Protonix) 40 mg PO DAILY [facility] Last Admin: 04/01/18 10:05 Dose: 40 mg Documented by: Sodium Chloride (Sodium Chloride Flush Syringe 10 Ml) 10 ml IV BID [facility] Last Admin: 04/01/18 00:36 Dose: 10 ml Documented by: Sodium Chloride (Sodium Chloride Flush Syringe 10 Ml) 10 ml IV PRN PRN PRN Reason: LINE FLUSH medications reviewed/updated as required Review of Systems - Review of Systems All systems: negative Gastrointestinal: BRBPR Exam - Constitutional Vital Signs: Temp Pulse Resp BP Pulse Ox 97.9 F 60 18 99/42 100 04/01/18 08:49 04/01/18 08:50 04/01/18 08:50 04/01/18 08:50 04/01/18 09:46 General appearance: no acute distress - Respiratory Respiratory: bilateral: diminished - Cardiovascular Rhythm: regular Heart Sounds: Present: S1 & S2 - Gastrointestinal General gastrointestinal: Present: soft, non-tender, non-distended, normal bowel sounds Rectal Exam: hemorrhoids, stool brown, other (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- Obed MARTINEZ) - Neurologic Neurological: alert and oriented x3 - Labs CBC & Chem 7: 04/01/18 06:11 04/01/18 06:11 Lab Results: Laboratory Results - last 24 hr 03/31/18 03/31/18 03/31/18 12:32 19:06 21:27 WBC RBC Hgb Hct MCV MCH MCHC RDW Plt Count Sodium Potassium Chloride Carbon Dioxide Anion Gap BUN Creatinine Estimated GFR BUN/Creatinine Ratio Glucose POC Glucose 392 H 208 H 174 H Calcium 04/01/18 04/01/18 04/01/18 05:49 06:11 06:11 WBC 10.9 RBC 3.86 Hgb 12.0 Hct 35.1 MCV 91 MCH 31 MCHC 34 RDW 14.3 Plt Count 246 Sodium TNR Potassium TNR Chloride TNR Carbon Dioxide TNR Anion Gap TNR BUN TNR Creatinine TNR Estimated GFR TNR BUN/Creatinine Ratio TNR Glucose TNR POC Glucose 178 H Calcium TNR Assessment and Plan 1.FOBT positive 2.BRBPR 3.H/o colon polyps 4.Fhx of colon cancer -H/H WNL (12.0/35.1)- stable -continue to monitor H/H and transfuse as needed -pt reports a scant amount of BRBPR following a BM yesterday- no melena or hematemesis -no active signs of bleeding this am -rectal revealed hemorrhoids and brown stool -last colonoscopy approximately 4 years ago per pt report revealed polyps -etiology- likely anorectal in origin vs other -clinically, patient is stable. Denies abd pain or N/V. Tolerating diet. -no plan for scope at this time, given no clinical evidence of significant GI bleeding -recommend f/u colonoscopy as outpatient -constipation-start on daily Miralax -continue supportive care -okay to be d/c per GI standpoint with f/u in clinic ~2 weeks to schedule outpatient colonoscopy as above -will sign off, please call if needed
[2018-04-01 12:19] VITALS: BP 104/45
--- NOTE | 2018-04-01 12:44 | Discharge Summary ---
Providers - Providers Date of Admission: 03/31/18 03:26 Date of discharge: 04/01/18 Attending physician: MIKEL HENRY 03/31/18 04:28 Consult to Physician [CONS] Routine Comment: Consulting Provider: GRETCHEN DALTON Physician Instructions: Reason For Exam: vag bleed 03/31/18 14:00 Consult to Physician [CONS] Routine Comment: Consulting Provider: DELIA RAMIREZ Physician Instructions: Reason For Exam: ARF 04/01/18 08:59 Consult to Physician [CONS] Routine Comment: Consulting Provider: JULI ROSENBERG Physician Instructions: Reason For Exam: Positive FOBT Primary care physician: DAVID SOW Hospitalization Condition: Stable Hospital course: Patient is a 67 yo woman with a history of DM type 2, pre-glaucoma, hypertension, GERD, dyslipidemia, CAD and tobacco dependency who presented to [facility] with sob and productive cough and presumed heavy vaginal bleeding found out Rectal bleed most likely due to hemorrhoids. 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, poa: consult Nephrology, treat with IV fluids Acute bronchitis, suspect AE COPD (Copd radiographically): treat with steroids, abx, nebs, referral outpatient [facility] Constipation Hypertension by h/o Diabetes by h/o GERD by h/o Hyperlipidemia by h/o Disposition: DC-01 TO HOME OR SELFCARE Time spent for discharge: 32 minutes Core Measure Documentation - Palliative Care Palliative Care/ Comfort Measures: Not Applicable - Core Measures Any of the following diagnoses?: none - VTE Discharge Requirements Deep Vein Thrombosis/Pulmonary Embolism Present on Admission: No Has pt received <5 days of overlap therapy or INR<2.0: No Anticoagulant overlap therapy prescribed at discharge: No Contraindication No Overlap Therapy order at DC: Not Indicated Exam - Physical Exam Narrative exam: Gen: WDWN, NAD, Awake, Alert, Orientated HEENT: NCAT, EOMI, PERRL, OP Clear Neck: supple, no adenopathy, no thyromegaly, no JVD CVS/Heart: RRR, normal S1S2, pulses present bilaterally Chest/Lungs: diminished bs bilateral with exp wheezing, Symmetrical chest expansion, good air entry bilaterally GI/Abdomen: soft, NTND, good bowel sounds, no guarding or rebound /Bladder: no suprapubic tenderness, no CVA or paraspinal tenderness Extermity/Skin: no c/c/e, no obvious rash MSK: FROM x 4 Neuro: CN 2-12 grossly intact, no new focal deficits Psych: calm - Constitutional Vitals: Temp Pulse Resp BP Pulse Ox 98.0 F 61 18 104/45 98 04/01/18 12:15 04/01/18 12:15 04/01/18 12:15 04/01/18 12:15 04/01/18 12:15 Plan Activity: other (no strenous activity unless cleared by pcp) Special Instructions: smoking cessation Additional Instructions: CXR showed COPD, please see Demand Equipment Repairer to rule out or rule in this diagnosis Follow up with: DAVID SOW MD [Primary Care Provider] - 7 Days CHRISTIAN ALMEIDA MD [Staff Physician] - 7 Days JULI ROSENBERG MD [Staff Physician] - 7 Days GRETCHEN DALTON MD [Staff Physician] - 7 Days Prescriptions: Amitriptyline [Elavil] 75 mg PO QHS #30 tablet Latanoprost 0.005% 1 drop OU QHS #1 bottle ALBUTEROL Inhaler(NF) [VENTOLIN Inhaler(NF)] 2 puff IH Q4H PRN #1 unit PRN Reason: Shortness Of Breath cefUROXime [Ceftin] 500 mg PO Q12H 5 Days #10 tablet hydroCHLOROthiazide [HCTZ] 12.5 mg PO QDAY #30 capsule Lispro Insulin [Humalog] 1 dose SUB-Q ACHS PRN #100 units PRN Reason: Hyperglycemia methylPREDNISolone [Medrol Dose Marcellus] 1 dose PO DAILY #1 pack Metoprolol Xl [Metoprolol SUCCINATE ER TAB] 50 mg PO QDAY #30 tablet Nebivolol HCl [Bystolic] 5 mg PO DAILY #30 tablet
--- NOTE | 2018-04-01 12:54 | Progress Note ---
Assessment and Plan Impression: Acute renal failure secondary secondary to contrast Lower back pain Acute bronchitis Hypertension Diabetes GERD Hyperlipidemia Hypertension Plan follow up labs today continue ivfs/abx strict i/is daily lytes cr is improving DVT prophylaxis ok to dc home check ua prior to dc, give po abx if positive Subjective Date of service: 04/01/18 Principal diagnosis: michael Interval history: resting in bed Objective - Exam Narrative Exam: General Apperance: The patient lying in bed, breathing comfortable HEENT: Normocephalic, atraumatic. Pupils equally round and reactive to light, EOMI, no sclericterus or JVD or thyromegaly or nodule. , no carotid bruit, mucous membranes moist, no exudate or erythema Heart: S1-S2, regular is rhythm Lungs: Rhonchi and wheezing bilaterally, breathing comfortable Abdomen: Positive bowel sounds, soft, nontender, nondistended, no organomegaly Extremities: No edema cyanosis clubbing Skin: no rash, nodule, warm and dry Neuro: cranial nerves 2-12 intact, speech is fluent, motor/sensory intact - Vital Signs Vital signs: Vital Signs - 12hr 04/01/18 04/01/18 04/01/18 04:07 08:49 08:50 Temperature 98.0 F 97.9 F Pulse Rate 75 60 Respiratory 16 18 Rate Blood Pressure 101/59 99/42 O2 Sat by Pulse 95 100 Oximetry 04/01/18 04/01/18 09:46 12:15 Temperature 98.0 F Pulse Rate 61 Respiratory 18 Rate Blood Pressure 104/45 O2 Sat by Pulse 100 98 Oximetry - Lab 04/01/18 06:11 04/01/18 06:11 Most recent lab results Calcium TNR 04/01/18 06:11 Medications & Allergies - Medications Allergies/Adverse Reactions: Allergies Latex, Natural Rubber Allergy (Severe, Verified 03/24/18 08:11) Swelling swelling around mouth and face iodine Adverse Reaction (Verified 03/31/18 05:14) Rash Hives shellfish derived Adverse Reaction (Verified 03/24/18 08:11) Rash Hives Home Medications: Home Medications Medication Instructions Recorded Confirmed Last Taken Type Ergocalciferol [Vitamin D2] 1 cap PO QWEEK 03/24/18 03/31/18 03/22/18 History Metformin HCl [Glucophage] 500 mg PO QAM 03/24/18 03/31/18 03/23/18 History ALBUTEROL Inhaler(NF) [VENTOLIN 2 puff IH Q4H PRN #1 unit 04/01/18 Unknown Rx Inhaler(NF)] Acetaminophen [Acetaminophen TAB] 650 mg PO Q4H PRN #15 tablet 04/01/18 Unknown Rx Amitriptyline [Elavil] 75 mg PO QHS #30 tablet 04/01/18 Unknown Rx Aspirin [Lo-Dose Aspirin EC] 81 mg PO DAILY #30 tab 04/01/18 03/31/18 03/24/18 06:50 Rx Latanoprost 0.005% 1 drop OU QHS #1 bottle 04/01/18 Unknown Rx Lispro Insulin [Humalog] 1 dose SUB-Q ACHS PRN #100 units 04/01/18 Unknown Rx Metoprolol Xl [Metoprolol 50 mg PO QDAY #30 tablet 04/01/18 Unknown Rx SUCCINATE ER TAB] Nebivolol HCl [Bystolic] 5 mg PO DAILY #30 tablet 04/01/18 Unknown Rx Omeprazole 40 mg PO QHS #30 04/01/18 03/31/18 03/23/18 Rx cefUROXime [Ceftin] 500 mg PO Q12H 5 Days #10 tablet 04/01/18 Unknown Rx hydroCHLOROthiazide [HCTZ] 12.5 mg PO QDAY #30 capsule 04/01/18 Unknown Rx methylPREDNISolone [Medrol Dose 1 dose PO DAILY #1 pack 04/01/18 Unknown Rx Marcellus] Active Medications: Generic Name Dose Route Start Last Admin Trade Name Freq PRN Reason Stop Dose Admin Acetaminophen 650 mg 03/31/18 04:28 Tylenol PO Q4H PRN Pain MILD(1-3)/Fever >100.5/ALLAN Amitriptyline HCl 75 mg 03/31/18 22:00 03/31/18 21:52 Elavil PO 75 mg QHS LINO Administration Aspirin 81 mg 03/31/18 10:00 04/01/18 10:05 Halfprin Ec PO 81 mg DAILY LINO Administration Dextrose 50 ml 03/31/18 05:32 D50w (25gm) Syringe IV PRN PRN Hypoglycemia Hydrochlorothiazide 12.5 mg 03/31/18 11:00 04/01/18 10:05 Hctz PO 12.5 mg QDAY LINO Administration Sodium Chloride 1,000 mls @ 100 mls/hr 03/31/18 04:00 03/31/18 22:10 Nacl 0.9% 1000 Ml IV 100 mls/hr DIRECT LINO Administration Levofloxacin/Dextrose 500 mg in 100 mls @ 100 mls/hr 03/31/18 10:00 03/31/18 09:58 Levaquin 500mg/100ml IV 100 mls/hr Q48HR LINO Administration Protocol Insulin Human Lispro 0 unit 03/31/18 07:30 04/01/18 10:09 Humalog SUB-Q 3 unit ACHS LINO Administration Protocol Latanoprost 1 drops 03/31/18 22:00 03/31/18 21:53 Latanoprost 0.005% OU 1 drops QHS LINO Administration Methylprednisolone Sodium Succinate 125 mg 03/31/18 06:00 04/01/18 05:35 Solu-Medrol IV 125 mg Q6HR LINO Administration Metoprolol Succinate 50 mg 03/31/18 11:00 04/01/18 10:05 Toprol Xl PO 50 mg QDAY LINO Administration Ondansetron HCl 4 mg 03/31/18 04:28 Zofran IV Q8H PRN Nausea And Vomiting Pantoprazole Sodium 40 mg 03/31/18 11:00 04/01/18 10:05 Protonix PO 40 mg DAILY LINO Administration Sodium Chloride 10 ml 03/31/18 10:00 04/01/18 00:36 Sodium Chloride Flush Syringe 10 Ml IV 10 ml BID LINO Administration Sodium Chloride 10 ml 03/31/18 04:28 Sodium Chloride Flush Syringe 10 Ml IV PRN PRN LINE FLUSH
== END 2018-04-01 15:41 | disposition home or self-care (01) | DRG 393 ==
LOC: ED 17:35 → 4A 03-31 03:26
PROVIDERS: ADMIT Internal Medicine; ATTEND Internal Medicine
DX: K64.8 Other hemorrhoids (principal); N17.0 Acute kidney failure with tubular necrosis; J44.0 Chronic obstructive pulmonary disease with (acute) lower respiratory infection; J44.1 Chronic obstructive pulmonary disease with (acute) exacerbation; N93.9 Abnormal uterine and vaginal bleeding, unspecified; E11.9 Type 2 diabetes mellitus without complications; J20.9 Acute bronchitis, unspecified; I10 Essential (primary) hypertension; M54.5 Low back pain; K21.9 Gastro-esophageal reflux disease without esophagitis; E78.5 Hyperlipidemia, unspecified; I25.10 Atherosclerotic heart disease of native coronary artery without angina pectoris; K59.00 Constipation, unspecified; M19.90 Unspecified osteoarthritis, unspecified site; G43.909 Migraine, unspecified, not intractable, without status migrainosus; N95.0 Postmenopausal bleeding; T50.8X5A Adverse effect of diagnostic agents, initial encounter; Y92.89 Other specified places as the place of occurrence of the external cause; Z82.49 Family history of ischemic heart disease and other diseases of the circulatory system; Z90.710 Acquired absence of both cervix and uterus; Z87.891 Personal history of nicotine dependence; Z91.041 Radiographic dye allergy status; Z91.040 Latex allergy status; Z91.013 Allergy to seafood; Z79.899 Other long term (current) drug therapy; Z79.82 Long term (current) use of aspirin; Z72.89 Other problems related to lifestyle; Z80.8 Family history of malignant neoplasm of other organs or systems
CPT/HCPCS: 36415; 71046; 72131; 76830; 76856; 80048; 82270; 82962; 85025; 85027; 85610; 85730; 93005; 93010; G0378; J1815; J1885; J1956; J2930; J7030